=== PATIENT | female | born 1990 | race Caucasian/White ===

== ENCOUNTER 2019-08-05 23:30 | Inpatient (IN) | payer BC ==
[2019-08-06] MEDS ORDERED: Ibuprofen 400 MG Tab PO PRN (00:29)
[2019-08-06] MEDS ORDERED: Benzocaine/Menthol 20%-0.5% Spray 78 GM Cannister TOP PRN (00:29)
[2019-08-06] MEDS ORDERED: Acetaminophen 500 MG Tab PO PRN (00:29)
[2019-08-06] MEDS ORDERED: Measles, Mumps & Rubella Vaccine 0.5 ML SDV SUBCUT ONE (00:29)
[2019-08-06] MEDS ORDERED: Lanolin 100% Cream 7 GM Tube TOP PRN (00:29)
[2019-08-06] MEDS ORDERED: Bisacodyl 10 MG Supp RECTAL PRN (00:29)
[2019-08-06] MEDS ORDERED: Witch Hazel Medicated Pads 40/Jar TOP PRN (00:29)
[2019-08-06] MEDS ORDERED: Docusate Sodium 100 MG Cap PO PRN (00:29)
[2019-08-06] MEDS ORDERED: Lidocaine 1% 20 ML MDV INJECT ONE (00:36)
--- NOTE | 2019-08-06 00:48 | PCM.DEL ---
L & D Note - General Info Date of Service: 08/06/19 Mother's Due Date: 08/09/19 - Delivery Note Labor: Spontaneous Delivery Outcome: Livebirth Presentation: Vertex Anesthesia Type: Local Anesthetic: Lidocaine (Xylocaine) 1% Plain Local Anesthetic Volume: 5cc Amniotic Fluid Description: Meconium Stained Episiotomy Type: None Laceration: 1st Degree Suture type: Vicryl Suture size: 3-0 Placenta: Intact, Spontaneous Cord: 3 Vessels Estimated Blood Loss: 300 Resuscitation Needed: No [place]: Suctioned Provider: Chelsi Colon Score 1 min: 9 Score 5 min: 9 Delivery Comments (Free Text/Narrative):: 28yo presenting in spontaneous labor and SROM. Had precipitous delivery in the hospital lobby. Per nursing report, fetus cephalic and delivery uncomplicated. Baby was cry and pink, moving all extremities right after delivery. Assessed by nursery team. Cord clamped and cut. After I arrived, mother was doing well and holding baby. Placenta delivered with gentle traction on the umbilical cord, examined to be intact. Fundus firm and below the umbilicus, bleeding is minimal. 1st degree perineal laceration noted. 1% lidocaine used for local anesthesia. Laceration repaired with 3-0 vicryl in usual fashion. Hemostasis was confirmed. Patient tolerated procedure well, given care instructions. - General Info Date of Service: 08/06/19 - Patient Data Med Orders - Current: Current Medications Acetaminophen (Tylenol Extra Strength) 500 mg PO Q4H PRN PRN Reason: Pain Acetaminophen (Tylenol Extra Strength) 1,000 mg PO Q4H PRN PRN Reason: Pain Benzocaine/Menthol (Dermoplast Pain Relief 20%-0.5% [place]) 78 gm TOP ASDIRECTED PRN PRN Reason: Perineal Comfort Measure Bisacodyl (Dulcolax) 10 mg RECTAL ONETIME PRN PRN Reason: Constipation Docusate Sodium (Colace) 100 mg PO BID PRN PRN Reason: Constipation Emollient Ointment (Lansinoh Hpa) 0 gm TOP ASDIRECTED PRN PRN Reason: Sore Nipples Ibuprofen (Motrin) 400 mg PO Q4H PRN PRN Reason: Pain Ibuprofen (Motrin) 800 mg PO Q6H PRN PRN Reason: Pain Lidocaine HCl (Xylocaine 1%) 20 ml INJECT ONETIME ONE Stop: 08/06/19 00:37 Annia Lennonel (Tucks) 1 pad TOP ASDIRECTED PRN PRN Reason: comfort care Discontinued Medications Measles/Mumps/Rubella Vaccine Live (M-M-R Ii Vaccine) 0.5 ml SUBCUT .ONCE ONE Stop: 08/06/19 00:30 - Problem List Review Problem List Initiated/Reviewed/Updated: Yes - My Orders Last 24 Hours: My Active Orders 08/06/19 00:15 CBC WITH AUTO DIFF [HEME] Routine TYPE AND SCREEN [BBK] Routine 08/06/19 00:29 Patient Status [ADT] Routine May Shower [RC] ASDIRECTED Up ad Kayley [RC] ASDIRECTED Vital Signs [RC] PER UNIT ROUTINE Acetaminophen [Tylenol Extra Strength] 1,000 mg PO Q4H PRN Acetaminophen [Tylenol Extra Strength] 500 mg PO Q4H PRN Benzocaine/Menthol [Dermoplast Pain Relief 20%-0.5% [place]] 78 gm TOP ASDIRECTED PRN Bisacodyl [Dulcolax] 10 mg RECTAL ONETIME PRN Docusate Sodium [Colace] 100 mg PO BID PRN Ibuprofen [Motrin] 400 mg PO Q4H PRN Ibuprofen [Motrin] 800 mg PO Q6H PRN Lanolin [Lansinoh HPA] See Dose Instructions TOP ASDIRECTED PRN Annia Polk [Tucks] 1 pad TOP ASDIRECTED PRN Assess Lochia [WOMSER] Per Unit Routine Assess Uterine Involution [WOMSER] Per Unit Routine Breast Pump [WOMSER] Per Unit Routine Peripheral IV Discontinue [OM.PC] Routine Resuscitation Status Routine 08/06/19 00:31 Ice Therapy [OM.PC] Per Unit Routine Perineal Care [OM.PC] Per Unit Routine Sitz Bath [OM.PC] Per Unit Routine 08/06/19 00:36 Lidocaine 1% [Xylocaine 1%] 20 ml INJECT ONETIME ONE 08/07/19 05:11 HEMOGLOBIN/HEMATOCRIT,HH [HEME] Timed
[2019-08-06] MEDS: Acetaminophen 500 MG Tab PO PRN ×2 (01:27→10:14)
[2019-08-06] MEDS: Ibuprofen 800 MG Tab PO PRN ×2 (01:28→15:54)
--- NOTE | 2019-08-06 12:27 | PCM.PNPP ---
- General Info Date of Service: 08/06/19 Functional Status: Reports: Pain Controlled, Tolerating Diet, Ambulating, Urinating - Review of Systems General: Reports: Fatigue. Denies: Fever, Weakness Pulmonary: Denies: Shortness of Breath Cardiovascular: Denies: Chest Pain, Palpitations, Lightheadedness Gastrointestinal: Denies: Abdominal Pain, Nausea, Vomiting Genitourinary: Denies: Flank Pain Musculoskeletal: Reports: No Symptoms Skin: Reports: No Symptoms Neurological: Reports: No Symptoms Psychiatric: Reports: No Symptoms - General Info Date of Service: 08/06/19 - Patient Data Vital Signs - Most Recent: Last Vital Signs Temp 36.7 C 08/06/19 07:55 Pulse 83 08/06/19 07:55 Resp 16 08/06/19 07:55 BP 113/64 08/06/19 07:55 Pulse Ox 96 08/06/19 07:55 Weight - Most Recent: 72.575 kg Lab Results - Last 24 Hours: Laboratory Results - last 24 hr 08/06/19 08/06/19 Range/Units 00:50 00:50 WBC 14.23 H (4.0-11.0) K/uL RBC 4.18 L (4.30-5.90) M/uL Hgb 13.7 (12.0-16.0) g/dL Hct 39.5 (36.0-46.0) % MCV 94.5 (80.0-98.0) fL MCH 32.8 H (27.0-32.0) pg MCHC 34.7 (31.0-37.0) g/dL RDW Std Deviation 43.5 (28.0-62.0) fl RDW Coeff of Liam 13 (11.0-15.0) % Plt Count 281 (150-400) K/uL MPV 11.00 (7.40-12.00) fL Neut % (Auto) 79.1 (48.0-80.0) % Lymph % (Auto) 12.5 L (16.0-40.0) % Gem % (Auto) 7.2 (0.0-15.0) % Eos % (Auto) 1.1 (0.0-7.0) % Baso % (Auto) 0.1 (0.0-1.5) % Neut # (Auto) 11.3 H (1.4-5.7) K/uL Lymph # (Auto) 1.8 (0.6-2.4) K/uL Gem # (Auto) 1.0 H (0.0-0.8) K/uL Eos # (Auto) 0.2 (0.0-0.7) K/uL Baso # (Auto) 0.0 (0.0-0.1) K/uL Blood Type O POSITIVE Antibody Screen NEGATIVE Med Orders - Current: Current Medications Acetaminophen (Tylenol Extra Strength) 500 mg PO Q4H PRN PRN Reason: Pain Acetaminophen (Tylenol Extra Strength) 1,000 mg PO Q4H PRN PRN Reason: Pain Last Admin: 08/06/19 10:14 Dose: 1,000 mg Benzocaine/Menthol (Dermoplast Pain Relief 20%-0.5% [place]) 78 gm TOP ASDIRECTED PRN PRN Reason: Perineal Comfort Measure Last Admin: 08/06/19 10:15 Dose: 1 can Bisacodyl (Dulcolax) 10 mg RECTAL ONETIME PRN PRN Reason: Constipation Docusate Sodium (Colace) 100 mg PO BID PRN PRN Reason: Constipation Emollient Ointment (Lansinoh Hpa) 0 gm TOP ASDIRECTED PRN PRN Reason: Sore Nipples Last Admin: 08/06/19 10:15 Dose: 1 tube Ibuprofen (Motrin) 400 mg PO Q4H PRN PRN Reason: Pain Ibuprofen (Motrin) 800 mg PO Q6H PRN PRN Reason: Pain Last Admin: 08/06/19 01:28 Dose: 800 mg Witch Felicitas (Tucks) 1 pad TOP ASDIRECTED PRN PRN Reason: comfort care Last Admin: 08/06/19 10:15 Dose: 1 tub Discontinued Medications Lidocaine HCl (Xylocaine 1%) 20 ml INJECT ONETIME ONE Stop: 08/06/19 00:37 Last Admin: 08/06/19 07:35 Dose: Not Given Measles/Mumps/Rubella Vaccine Live (M-M-R Ii Vaccine) 0.5 ml SUBCUT .ONCE ONE Stop: 08/06/19 00:30 - Infant Interaction Support Person: Significant Other - Exam General: Alert, Oriented Lungs: Normal Respiratory Effort Cardiovascular: Regular Rate, Regular Rhythm GI/Abdominal Exam: Normal Bowel Sounds, Soft Extremities: Pedal Edema (trace). No: Tiffanie's Sign Skin: Warm, Dry, Intact Neurological: No New Focal Deficit Psy/Mental Status: Alert, Normal Affect, Normal Mood - Problem List & Annotations (1) Vaginal delivery SNOMED Code(s): 324392953 Code(s): O80 - ENCOUNTER FOR FULL-TERM UNCOMPLICATED DELIVERY Status: Acute Current Visit: No - Problem List Review Problem List Initiated/Reviewed/Updated: Yes - Assessment Assessment:: PPD 1 status post - Plan Plan:: Patient is doing well overall, continue PP cares
[2019-08-07] MEDS: Acetaminophen 500 MG Tab PO PRN (01:21)
--- NOTE | 2019-08-07 08:37 | PCM.PNPP ---
- General Info Date of Service: 08/07/19 Functional Status: Reports: Pain Controlled, Tolerating Diet, Ambulating, Urinating - Review of Systems General: Reports: Fatigue. Denies: Fever, Weakness Pulmonary: Denies: Shortness of Breath Cardiovascular: Denies: Chest Pain, Palpitations, Lightheadedness Gastrointestinal: Denies: Abdominal Pain, Nausea, Vomiting Genitourinary: Denies: Flank Pain Skin: Reports: No Symptoms Neurological: Reports: No Symptoms Psychiatric: Reports: No Symptoms - General Info Date of Service: 08/07/19 - Patient Data Vital Signs - Most Recent: Last Vital Signs Temp 36.2 C 08/07/19 07:18 Pulse 69 08/07/19 07:18 Resp 16 08/07/19 07:18 BP 115/69 08/07/19 07:49 Pulse Ox 97 08/07/19 07:18 Weight - Most Recent: 72.575 kg Lab Results - Last 24 Hours: Laboratory Results - last 24 hr 08/07/19 Range/Units 06:02 Hgb 13.0 (12.0-16.0) g/dL Hct 39.0 (36.0-46.0) % Med Orders - Current: Current Medications Acetaminophen (Tylenol Extra Strength) 500 mg PO Q4H PRN PRN Reason: Pain Acetaminophen (Tylenol Extra Strength) 1,000 mg PO Q4H PRN PRN Reason: Pain Last Admin: 08/07/19 01:21 Dose: 1,000 mg Benzocaine/Menthol (Dermoplast Pain Relief 20%-0.5% [place]) 78 gm TOP ASDIRECTED PRN PRN Reason: Perineal Comfort Measure Last Admin: 08/06/19 10:15 Dose: 1 can Bisacodyl (Dulcolax) 10 mg RECTAL ONETIME PRN PRN Reason: Constipation Docusate Sodium (Colace) 100 mg PO BID PRN PRN Reason: Constipation Emollient Ointment (Lansinoh Hpa) 0 gm TOP ASDIRECTED PRN PRN Reason: Sore Nipples Last Admin: 08/06/19 10:15 Dose: 1 tube Ibuprofen (Motrin) 400 mg PO Q4H PRN PRN Reason: Pain Ibuprofen (Motrin) 800 mg PO Q6H PRN PRN Reason: Pain Last Admin: 08/06/19 15:54 Dose: 800 mg Witch Felicitas (Tucks) 1 pad TOP ASDIRECTED PRN PRN Reason: comfort care Last Admin: 08/06/19 10:15 Dose: 1 tub Discontinued Medications Lidocaine HCl (Xylocaine 1%) 20 ml INJECT ONETIME ONE Stop: 08/06/19 00:37 Last Admin: 08/06/19 07:35 Dose: Not Given Measles/Mumps/Rubella Vaccine Live (M-M-R Ii Vaccine) 0.5 ml SUBCUT .ONCE ONE Stop: 08/06/19 00:30 - Interaction Support Person: Significant Other - Recovery Exam Fundal Tone: Firm Fundal Level: 2 Fingerbreadths Below Umbilicus Fundal Placement: Midline Lochia Amount: Scant Lochia Color: Rubra/Red Perineum Description: Intact, Minimal Bruising/Swelling Other Perinuem Description: 1 degree laceration Episiotomy/Laceration: Approximated Bladder Status: Voiding Urinary Elimination: Voided - Exam General: Alert, Oriented Lungs: Normal Respiratory Effort Cardiovascular: Regular Rate, Regular Rhythm GI/Abdominal Exam: Normal Bowel Sounds, Soft. No: Guarding, Rigid Extremities: Pedal Edema (trace). No: Tiffanie's Sign Skin: Warm, Dry, Intact Neurological: No New Focal Deficit Psy/Mental Status: Alert, Normal Affect - Problem List & Annotations (1) Vaginal delivery SNOMED Code(s): 428089671 Code(s): O80 - ENCOUNTER FOR FULL-TERM UNCOMPLICATED DELIVERY Status: Acute Current Visit: No - Problem List Review Problem List Initiated/Reviewed/Updated: Yes - Assessment Assessment:: PPD 2 status post - Plan Plan:: Doing well overall, continue PP cares. Patient would like to go home, but pedi may want to monitor baby until tomorrow given SGA (5 lb 14 oz at ). Discharge instructions reviewed.
--- NOTE | 2019-08-08 08:46 | PCM.PNPP ---
- General Info Date of Service: 08/08/19 Functional Status: Reports: Pain Controlled, Tolerating Diet, Ambulating, Urinating - Review of Systems General: Denies: Fever, Weakness, Fatigue Pulmonary: Denies: Shortness of Breath Cardiovascular: Denies: Chest Pain, Palpitations, Lightheadedness Gastrointestinal: Reports: Abdominal Pain. Denies: Nausea, Vomiting Genitourinary: Denies: Flank Pain Musculoskeletal: Reports: No Symptoms Skin: Reports: No Symptoms Neurological: Reports: No Symptoms Psychiatric: Reports: No Symptoms - General Info Date of Service: 08/08/19 - Patient Data Vital Signs - Most Recent: Last Vital Signs Temp 36.8 C 08/08/19 04:22 Pulse 86 08/08/19 04:22 Resp 16 08/08/19 04:22 BP 122/69 08/08/19 04:22 Pulse Ox 96 08/08/19 04:22 Weight - Most Recent: 72.575 kg Med Orders - Current: Current Medications Acetaminophen (Tylenol Extra Strength) 500 mg PO Q4H PRN PRN Reason: Pain Acetaminophen (Tylenol Extra Strength) 1,000 mg PO Q4H PRN PRN Reason: Pain Last Admin: 08/07/19 01:21 Dose: 1,000 mg Benzocaine/Menthol (Dermoplast Pain Relief 20%-0.5% [place]) 78 gm TOP ASDIRECTED PRN PRN Reason: Perineal Comfort Measure Last Admin: 08/06/19 10:15 Dose: 1 can Bisacodyl (Dulcolax) 10 mg RECTAL ONETIME PRN PRN Reason: Constipation Docusate Sodium (Colace) 100 mg PO BID PRN PRN Reason: Constipation Emollient Ointment (Lansinoh Hpa) 0 gm TOP ASDIRECTED PRN PRN Reason: Sore Nipples Last Admin: 08/06/19 10:15 Dose: 1 tube Ibuprofen (Motrin) 400 mg PO Q4H PRN PRN Reason: Pain Ibuprofen (Motrin) 800 mg PO Q6H PRN PRN Reason: Pain Last Admin: 08/06/19 15:54 Dose: 800 mg Witch Felicitas (Tucks) 1 pad TOP ASDIRECTED PRN PRN Reason: comfort care Last Admin: 08/06/19 10:15 Dose: 1 tub Discontinued Medications Lidocaine HCl (Xylocaine 1%) 20 ml INJECT ONETIME ONE Stop: 08/06/19 00:37 Last Admin: 08/06/19 07:35 Dose: Not Given Measles/Mumps/Rubella Vaccine Live (M-M-R Ii Vaccine) 0.5 ml SUBCUT .ONCE ONE Stop: 08/06/19 00:30 - Interaction Support Person: Significant Other - Recovery Exam Fundal Tone: Firm Fundal Level: 2 Fingerbreadths Below Umbilicus Fundal Placement: Midline Lochia Amount: Scant Lochia Color: Rubra/Red Perineum Description: Intact, Minimal Bruising/Swelling, Edematous Other Perinuem Description: 1 degree laceration Episiotomy/Laceration: Approximated Bladder Status: Voiding Urinary Elimination: Voided - Exam General: Alert, Oriented Lungs: Clear to Auscultation, Normal Respiratory Effort Cardiovascular: Regular Rate, Regular Rhythm GI/Abdominal Exam: Normal Bowel Sounds, Soft Extremities: Pedal Edema (trace). No: Tiffanie's Sign Skin: Warm, Dry, Intact Neurological: No New Focal Deficit Psy/Mental Status: Alert, Normal Affect, Normal Mood - Problem List & Annotations (1) Vaginal delivery SNOMED Code(s): 850754682 Code(s): O80 - ENCOUNTER FOR FULL-TERM UNCOMPLICATED DELIVERY Status: Acute Current Visit: No - Problem List Review Problem List Initiated/Reviewed/Updated: Yes - My Orders Last 24 Hours: My Active Orders 08/08/19 08:44 Ready for Discharge [RC] PER UNIT ROUTINE - Assessment Assessment:: PPD 3 status post - Plan Plan:: Discharge to home today. Discharge instructions reviewed.
[2019-08-08] MEDS ORDERED: Measles, Mumps & Rubella Vaccine 0.5 ML SDV SUBCUT ONE (13:03)
[2019-08-08 14:06] VITALS: BP 113/64; PULSE 94
== END 2019-08-08 13:15 | disposition home or self-care (01) | DRG 560 ==
LOC: MW.OBCHECK 23:30 → MW.OB 23:31 → OBSVTOIN 23:36 → MW.OBCHECK 23:59 → MW.OB 08-06 → MW.OBCHECK 08-06 → MW.OB 08-06 00:07
PROVIDERS: ADMIT Obstetrics & Gynecology; ATTEND Obstetrics & Gynecology
PROC: 10E0XZZ Delivery of Products of Conception, External Approach (ICD-10-PCS; principal; 2019-08-06)
PROC: 0HQ9XZZ Repair Perineum Skin, External Approach (ICD-10-PCS; 2019-08-06)
DX: O99.824 Streptococcus B carrier state complicating childbirth (principal); O77.0 Labor and delivery complicated by meconium in amniotic fluid; O70.0 First degree perineal laceration during delivery; Z37.0 Single live birth; Z3A.38 38 weeks gestation of pregnancy
CPT/HCPCS: 36415; 59409; 85014; 85018; 85025; 86850; 86900; 86901; 90471; 90707; A9270-GY